=== PATIENT | male | born 1985 | race African-American/Black ===

== ENCOUNTER 2022-01-21 18:33 | Emergency (ER) | payer SELFPAY ==
[2022-01-21] MEDS ORDERED: Lidocaine Viscous Sol 2% 15 ml UD Cup ONE (20:02)
[2022-01-21] MEDS ORDERED: Mag-Al Plus 1200 MG/1200 MG/120 MG/30 ML UDCUP ONE (20:02)
== END 2022-01-21 20:25 | disposition home or self-care (01) ==
LOC: CSHERS 18:33
DX: R10.13 Epigastric pain (principal); F17.210 Nicotine dependence, cigarettes, uncomplicated
CPT/HCPCS: 99284

== ENCOUNTER 2022-03-29 20:24 | Emergency (ER) | payer SELFPAY ==
[2022-03-29] MEDS ORDERED: Ketorolac Tromethamine 30 MG/ML VIAL ONE (21:45)
== END 2022-03-29 21:05 | disposition home or self-care (01) ==
LOC: CSHERS 20:24
DX: T24.231A Burn of second degree of right lower leg, initial encounter (principal); F17.210 Nicotine dependence, cigarettes, uncomplicated; X19.XXXA Contact with other heat and hot substances, initial encounter
CPT/HCPCS: 16020; 96372; J1885